=== PATIENT | female | born 1940 | race Caucasian/White ===

== ENCOUNTER 2018-06-16 18:21 | Emergency (ER) | payer MEDICARE, BC ==
[~2018-06-16] VITALS: Ht 152.4 cm; Wt 68.0 kg
--- NOTE | 2018-06-16 19:06 | ED Abdominal Pain ---
General Chief Complaint: Abdominal/GI Problems Stated Complaint: PAIN UNDER RIBCAGE Nursing Triage Note: TO TRIAGE WITH RUQ ABD PAIN. WAS SEEN BY ANTHONY TODAY AND HER LIVER ENZYMES WERE UP. SCHEDULED FOR A GB ULTRASOUND TOMORROW. WAS TOLD TO COME TO ER WITH INCREASE OF TEMP AND PAIN WHICH SHE SAYS SHE HAS BOTH. TEMP AT HOME WAS 99.3 Sepsis Screen: Possible Sepsis Risk Source of Information: Patient Exam Limitations: No Limitations History of Present Illness Date Seen by Provider: Jun 16, 2018 Time Seen by Provider: 19:04 Initial Comments To ER by private vehicle accompanied by her with reports of right upper quadrant abdominal pain. This began this morning. She saw her primary care provider Dr. Kai Cruz this morning who evaluated her and had labs. She states that she was told her liver enzymes were elevated and she is scheduled for a gallbladder ultrasound in the morning. She was told to come to the emergency room if she develops worsening pain or fevers. Her temperature went from 97.4-99.4 this evening and she had an increase in her pain so she comes here. She denies nausea or vomiting. She did have loose stools yesterday. No history of this prior to today. Timing/Duration: 1-2 Days Severity/Quality: Moderate Location: Generalized Abdomen Radiation: No Radiation Activities at Onset: None Associated Symptoms: No Fever/Chills, No Nausea/Vomiting Allergies and Home Medications Allergies Uncoded Allergies: SODIUM PENTHATHOL (Allergy, Unknown, 06/16/18) Home Medications Cefuroxime Axetil 250 Mg Tablet, 250 MG PO BID Prescribed by: LOTTIE LANDRY on 06/16/18 2629 Patient Home Medication List Home Medication List Reviewed: Yes Review of Systems Review of Systems Constitutional: see HPI; No chills, No fever EENTM: No Symptoms Reported Respiratory: No Symptoms Reported Cardiovascular: No Symptoms Reported Gastrointestinal: See HPI, Abdominal Pain, Diarrhea; Denies Nausea, Denies Vomiting (Chadd Stephenson) Genitourinary: No Symptoms Reported Musculoskeletal: no symptoms reported Skin: no symptoms reported Psychiatric/Neurological: No Symptoms Reported Endocrine: No Symptoms Reported Hematologic/Lymphatic: No Symptoms Reported Past Zypspon-Jyzdav-Vjftxb Hx Patient Social History Recent Foreign Travel: No Contact w/Someone Who Travel: No Recent Infectious Disease Expo: No Physical Exam Vital Signs Vital Signs - First Documented 06/16/18 18:34 Temp 98.4 Pulse 94 Resp 16 B/P (MAP) 198/77 (117) Pulse Ox 97 O2 Delivery Room Air Capillary Refill : Less Than 3 Seconds Height/Weight/BMI Height: 5'" Weight: 150lbs. oz. 68.624779ms; BMI Method:Stated General Appearance: WD/WN, no apparent distress HEENT: PERRL/EOMI, normal ENT inspection Neck: non-tender, full range of motion Respiratory: no respiratory distress, no accessory muscle use Cardiovascular: regular rate, rhythm, no murmur Gastrointestinal: normal bowel sounds, soft, tenderness Extremities: normal range of motion, non-tender Neurologic/Psychiatric: alert, normal mood/affect, oriented x 3 Skin: normal color, warm/dry Focused Exam Lactate Level 06/16/18 18:57: Lactic Acid Level 1.27 Lactic Acid Level Laboratory Tests Test 06/16/18 18:57 Lactic Acid Level 1.27 MMOL/L (0.50-2.00) Progress/Results/Core Measures Results/Orders Lab Results Laboratory Tests Test 06/16/18 18:52 06/16/18 18:57 Range/Units Prothrombin Time 12.8 12.2-14.7 SEC INR Comment 1.0 0.8-1.4 Activated Partial Thromboplast Time 29 24-35 SEC White Blood Count 6.8 4.3-11.0 10^3/uL Red Blood Count 4.14 L 4.35-5.85 10^6/uL Hemoglobin 12.6 11.5-16.0 G/DL Hematocrit 39 35-52 % Mean Corpuscular Volume 94 80-99 FL Mean Corpuscular Hemoglobin 30 25-34 PG Mean Corpuscular Hemoglobin Concent 32 32-36 G/DL Red Cell Distribution Width 13.9 10.0-14.5 % Platelet Count 250 130-400 10^3/uL Mean Platelet Volume 10.1 7.4-10.4 FL Neutrophils (%) (Auto) 70 42-75 % Lymphocytes (%) (Auto) 23 12-44 % Monocytes (%) (Auto) 6 0-12 % Eosinophils (%) (Auto) 1 0-10 % Basophils (%) (Auto) 0 0-10 % Neutrophils # (Auto) 4.7 1.8-7.8 X 10^3 Lymphocytes # (Auto) 1.6 1.0-4.0 X 10^3 Monocytes # (Auto) 0.4 0.0-1.0 X 10^3 Eosinophils # (Auto) 0.1 0.0-0.3 10^3/uL Basophils # (Auto) 0.0 0.0-0.1 10^3/uL Urine Color YELLOW Urine Clarity CLEAR Urine pH 6.5 5-9 Urine Specific [place]well 1.020 1.016-1.022 Urine Protein 2+ H NEGATIVE Urine Glucose (UA) NEGATIVE NEGATIVE Urine Ketones NEGATIVE NEGATIVE Urine Nitrite NEGATIVE NEGATIVE Urine Bilirubin NEGATIVE NEGATIVE Urine Urobilinogen NORMAL NORMAL MG/DL Urine Leukocyte Esterase 3+ H NEGATIVE Urine RBC (Auto) 1+ H NEGATIVE Urine RBC RARE /HPF Urine WBC 10-25 H /HPF Urine Squamous Epithelial Cells 10-25 H /HPF Urine Crystals NONE /LPF Urine Bacteria FEW H /HPF Urine Casts NONE /LPF Urine Mucus SMALL H /LPF Urine Culture Indicated YES Sodium Level 141 135-145 MMOL/L Potassium Level 3.4 L 3.6-5.0 MMOL/L Chloride Level 106 98-107 MMOL/L Carbon Dioxide Level 26 21-32 MMOL/L Anion Gap 9 5-14 MMOL/L Blood Urea Nitrogen 15 7-18 MG/DL Creatinine 0.81 0.60-1.30 MG/DL Estimat Glomerular Filtration Rate > 60 BUN/Creatinine Ratio 19 Glucose Level 110 H 70-105 MG/DL Lactic Acid Level 1.27 0.50-2.00 MMOL/L Calcium Level 10.0 8.5-10.1 MG/DL Corrected Calcium 9.6 8.5-10.1 MG/DL Total Bilirubin 1.2 H 0.1-1.0 MG/DL Aspartate Amino Transf (AST/SGOT) 311 H 5-34 U/L Alanine Aminotransferase (ALT/SGPT) 142 H 0-55 U/L Alkaline Phosphatase 123 40-136 U/L Total Protein 8.1 6.4-8.2 GM/DL Albumin 4.5 3.2-4.5 GM/DL Lipase 86 H 8-78 U/L My Orders Orders - LOTTIE LANDRY FUNDR[employer] SPECIALIST Cbc With Automated Diff (06/16/18 18:44) Comprehensive Metabolic Panel (06/16/18 18:44) Lipase (06/16/18 18:44) Ua Culture If Indicated (06/16/18 18:44) Iv Heplock-Insert (Order) (06/16/18 18:44) Ct Abdomen/Pelvis W (06/16/18 18:44) Blood Culture (06/16/18 18:44) Lactic Acid Analyzer (06/16/18 18:44) Ketorolac Injection (Toradol Injection) (06/16/18 19:15) Urine Culture (06/16/18 18:57) Ceftriaxone For Iv Use (Rocephin For I (06/16/18 19:30) Protime With Inr (06/16/18 19:27) Partial Thromboplastin Time (06/16/18 19:27) Iohexol Injection (Omnipaque 350 Mg/Ml 1 (06/16/18 20:00) Contrast Received (Contrast Received) (06/16/18 20:00) Sodium Chloride Flush (Catheter Flush Sy (06/16/18 20:00) Ns (Ivpb) (Sodium Chloride 0.9% Ivpb Bag (06/16/18 20:00) Medications Given in ED Current Medications Medications Dose Ordered Sig/Anaid Route Start Time Stop Time Status Last Admin Dose Admin Ceftriaxone Sodium 1000 mg/ Sterile Water 10 ml @ 200 mls/hr ONCE ONCE IV 06/16/18 19:30 06/16/18 19:32 DC 06/16/18 20:39 200 MLS/HR Iohexol 100 ml ONCE ONCE IV 06/16/18 20:00 06/16/18 20:01 DC 06/16/18 20:09 100 ML Ketorolac Tromethamine 15 mg ONCE ONCE IVP 06/16/18 19:15 06/16/18 19:16 DC 06/16/18 19:09 15 MG Sodium Chloride 10 ml NEEDED PRN IV 06/16/18 20:00 06/16/18 20:09 10 ML Sodium Chloride 100 ml ONCE ONCE IV 06/16/18 20:00 06/16/18 20:01 DC 06/16/18 20:09 80 ML Vital Signs/I&O 06/16/18 18:34 Temp 98.4 Pulse 94 Resp 16 B/P (MAP) 198/77 (117) Pulse Ox 97 O2 Delivery Room Air Blood Pressure Mean: 117 Departure Communication (Admissions) Family Conversation NAME: RACHEL ORTIZ MED REC#: [id number] PT STATUS: REG ER : 1940 PHYSICIAN: LOTTIE LANDRY FUNDR[employer] SPECIALIST ADMIT DATE: 06/16/18/ER Draft Date of Exam:06/16/18 CT ABDOMEN/PELVIS W PROCEDURE: CT abdomen and pelvis with contrast. TECHNIQUE: Multiple contiguous axial images were obtained through the abdomen and pelvis after administration of intravenous contrast. DATE: June 16, 2018. COMPARISON: None. INDICATION: 78-year-old female, right upper quadrant abdominal pain. Fever. FINDINGS: The visualized portions of the lung bases are grossly clear. The heart is not enlarged. There is no identified pericardial effusion. The liver is normal in size and contour. There is a low-attenuation lesion in the right lobe of the liver on axial image 14 which measures 1.2 cm in size with internal attenuation of 22 Hounsfield units. This does not meet strict definite diagnostic criteria for diagnosis of hepatic cyst. There is no additional identified liver lesion. The main, right and left portal veins are patent. The gallbladder is distended. There is no CT apparent gallstone. There is no pericholecystic fluid or adjacent inflammatory stranding to suggest acute cholecystitis. There is no identified intrahepatic or extrahepatic bile duct dilation. There are several pancreatic parenchymal calcifications without prominence of the pancreatic ducts compatible with changes of chronic pancreatitis. There is no evidence of acute pancreatitis. The spleen is normal in size. The adrenal glands are unremarkable. Unremarkable appearance of the renal parenchyma. The urinary collecting systems are not distended. There is no identified renal or ureteral stone. There does appear to be a cystocele. There is diverticulosis without evidence of acute diverticulitis. The intestinal tract is not distended. The appendix is well seen on axial image 51 and adjacent sequential images. There is no evidence of acute appendicitis. There is no free intraperitoneal air. There is no drainable fluid collection. There is no sizable volume free pelvic fluid. There are atherosclerotic calcifications. There is no identified abnormally enlarged lymph node in the abdomen or pelvis which meets CT size criteria for adenopathy. There are multilevel degenerative changes of the spine. There is grade 1 anterolisthesis of L5 on S1 related to facet degenerative changes. Sclerotic lesion of L2 measures 6 mm in size and is technically indeterminate. No additional sclerotic bone lesion is identified. IMPRESSION: CT abdomen and pelvis: 1. Changes of chronic pancreatitis without evidence of acute pancreatitis. 2. Distended gallbladder without CT apparent gallstones or evidence of acute cholecystitis. 3. Diverticulosis without evidence of acute diverticulitis. 4. Cystocele. 5. Additional findings as above. Dictated on workstation # [id number] Dict: 06/16/182021 Trans: 06/16/182029 PJE [id number] Interpreted by: PRAKASH OLIVERA MD Electronically signed by: [id number]-patient's pain is resolved after 15 mg of Toradol. No nausea. No white count or fever here. No hypotension. Discussed the case with Dr. York. He would be happy to see the patient in follow-up after she receives her ultrasound tomorrow. Her either tomorrow or next week, which ever would be easiest. Impression Primary Impression: Right upper quadrant abdominal pain Additional Impression: Elevated liver enzymes Disposition: HOME, SELF-CARE Condition: Stable Departure-Patient Inst. Decision time for Depature: 21:03 Patient Instructions: Acute Abdomen (Belly Pain), Adult (DC) Add. Discharge Instructions: 1. Call scheduling department in the morning at to ask what time the gallbladder ultrasound is. You may also call Dr. York [facility] Take the antibiotics as directed for the bladder infection. Scripts Cefuroxime Axetil (Cefuroxime) 250 Mg Tablet 250 MG PO BID, #10 TAB Prov: LOTTIE LANDRY APRN 06/16/18 Copy Copies To 1: PING YORK DO; KAI CRUZ MD, PETER J APRN Jun 16, 2018 19:06
[2018-06-16 19:08] LABS: BASOPHILS % (AUTO) 0 % (0-10); EOSINOPHILS # (AUTO) 0.1 10^3/uL (0.0-0.3); EOSINOPHILS % (AUTO) 1 % (0-10); HEMATOCRIT 39 % (35-52); HEMOGLOBIN 12.6 G/DL (11.5-16.0); LYMPHOCYTES # (AUTO) 1.6 X 10^3 (1.0-4.0); LYMPHOCYTES % (AUTO) 23 % (12-44); MEAN CORPUSCULAR HEMOGLOBIN 30 PG (25-34); MEAN CORPUSCULAR HGB CONC 32 G/DL (32-36); MEAN CORPUSCULAR VOLUME 94 FL (80-99); MEAN PLATELET VOLUME 10.1 FL (7.4-10.4); MONOCYTES # (AUTO) 0.4 X 10^3 (0.0-1.0); MONOCYTES % (AUTO) 6 % (0-12); NEUTROPHILS # (AUTO) 4.7 X 10^3 (1.8-7.8); NEUTROPHILS % (AUTO) 70 % (42-75); PLATELET COUNT 250 10^3/uL (130-400); RED CELL DISTRIBUTION WIDTH 13.9 % (10.0-14.5); WHITE BLOOD COUNT 6.8 10^3/uL (4.3-11.0)
[2018-06-16 19:09] LABS: BILIRUBIN,URINE NEGATIVE (NEGATIVE); CLARITY,URINE CLEAR; GLUCOSE, URINE (UA) NEGATIVE (NEGATIVE); KETONES,URINE NEGATIVE (NEGATIVE); LEUKOCYTE ESTERASE ,URINE 3+ (NEGATIVE); NITRITE,URINE NEGATIVE (NEGATIVE); PH,URINE 6.5 (5-9); PROTEIN,URINE 2+ (NEGATIVE); UROBILINOGEN,URINE NORMAL (NORMAL)
[2018-06-16] MEDS ORDERED: KETOROLAC 30 MG/ML VIAL IVP ONE (19:15)
[2018-06-16 19:17] LABS: BACTERIA,URINE FEW /HPF; COLOR,URINE YELLOW; RBC,URINE RARE /HPF
[2018-06-16] MEDS ORDERED: cefTRIAXone FOR IV USE 1,000 MG in WATER (STERILE) FOR INJECTION 10 ML IV ONE (19:30)
[2018-06-16 19:51] LABS: PROTHROMBIN TIME PATIENT 12.8 SEC (12.2-14.7)
[2018-06-16 19:53] LABS: ALANINE AMINOTRANSFERASE 142 U/L (0-55); ALBUMIN 4.5 GM/DL (3.2-4.5); ALKALINE PHOSPHATASE 123 U/L (40-136); BILIRUBIN,TOTAL 1.2 MG/DL (0.1-1.0); BUN/CREATININE RATIO 19; CARBON DIOXIDE 26 MMOL/L (21-32); CHLORIDE 106 MMOL/L (98-107); CREATININE SERUM 0.81 MG/DL (0.60-1.30); GFR ESTIMATED > 60; GLUCOSE 110 MG/DL (70-105); LIPASE 86 U/L (8-78); POTASSIUM 3.4 MMOL/L (3.6-5.0); SODIUM 141 MMOL/L (135-145); TOTAL PROTEIN 8.1 GM/DL (6.4-8.2)
[2018-06-16] MEDS ORDERED: NS 100 ML (IVPB) BAG IV ONE (20:00)
[2018-06-16] MEDS ORDERED: RECEIVED CONTRAST (Hold Metformin) IV SCH (20:00)
[2018-06-16] MEDS ORDERED: IOHEXOL 350 MG/ML 100 ML (OMNIPAQUE 350) VIAL IV ONE (20:00)
[2018-06-16] MEDS ORDERED: CATHETER FLUSH 10 ML SYR IV PRN (20:00)
--- NOTE | 2018-06-16 20:31 | Diagnostic Imaging Report ---
PROCEDURE: CT abdomen and pelvis with contrast. TECHNIQUE: Multiple contiguous axial images were obtained through the abdomen and pelvis after administration of intravenous contrast. DATE: June 16, 2018. COMPARISON: None. INDICATION: 78-year-old female, right upper quadrant abdominal pain. Fever. FINDINGS: The visualized portions of the lung bases are grossly clear. The heart is not enlarged. There is no identified pericardial effusion. The liver is normal in size and contour. There is a low-attenuation lesion in the right lobe of the liver on axial image 14 which measures 1.2 cm in size with internal attenuation of 22 Hounsfield units. This does not meet strict definite diagnostic criteria for diagnosis of hepatic cyst. There is no additional identified liver lesion. The main, right and left portal veins are patent. The gallbladder is distended. There is no CT apparent gallstone. There is no pericholecystic fluid or adjacent inflammatory stranding to suggest acute cholecystitis. There is no identified intrahepatic or extrahepatic bile duct dilation. There are several pancreatic parenchymal calcifications without prominence of the pancreatic ducts compatible with changes of chronic pancreatitis. There is no evidence of acute pancreatitis. The spleen is normal in size. The adrenal glands are unremarkable. Unremarkable appearance of the renal parenchyma. The urinary collecting systems are not distended. There is no identified renal or ureteral stone. There does appear to be a cystocele. There is diverticulosis without evidence of acute diverticulitis. The intestinal tract is not distended. The appendix is well seen on axial image 51 and adjacent sequential images. There is no evidence of acute appendicitis. There is no free intraperitoneal air. There is no drainable fluid collection. There is no sizable volume free pelvic fluid. There are atherosclerotic calcifications. There is no identified abnormally enlarged lymph node in the abdomen or pelvis which meets CT size criteria for adenopathy. There are multilevel degenerative changes of the spine. There is grade 1 anterolisthesis of L5 on S1 related to facet degenerative changes. Sclerotic lesion of L2 measures 6 mm in size and is technically indeterminate. No additional sclerotic bone lesion is identified. IMPRESSION: CT abdomen and pelvis: 1. Changes of chronic pancreatitis without evidence of acute pancreatitis. 2. Distended gallbladder without CT apparent gallstones or evidence of acute cholecystitis. 3. Diverticulosis without evidence of acute diverticulitis. 4. Cystocele. 5. Additional findings as above. Dictated by: Dictated on workstation # [id number]
[2018-06-16] MEDS ORDERED: CEFU250T80 PO (21:07)
[2018-06-16 21:30] VITALS: BP 123/64
== END 2018-06-16 21:32 | disposition home or self-care (01) ==
LOC: EDUNIT# 18:21 → ER 18:24
DX: R10.11 Right upper quadrant pain (principal); R94.5 Abnormal results of liver function studies; Z88.8 Allergy status to other drugs, medicaments and biological substances
CPT/HCPCS: 36415; 74177; 80053; 81000; 83605; 83690; 85025; 85610; 85730; 87040; 87077; 87088

== ENCOUNTER → 2018-06-17 | Outpatient (CLI) | payer MEDICARE, BC ==
[~2018-06-17] MED LIST: CEFU250T80 PO
--- NOTE | 2018-06-17 10:17 | Diagnostic Imaging Report ---
PROCEDURE: US Gallbladder. TECHNIQUE: Multiple real-time grayscale images were obtained over the right upper quadrant in various projections. INDICATION: Right upper quadrant pain. The liver is normal in size at 15.9 cm. No discrete liver mass is identified. The gallbladder contains a small stone. No wall thickening or pericholecystic fluid is seen. No biliary duct dilatation is identified. Pancreas is obscured by bowel gas. Right kidney is unremarkable. There is no ascites. IMPRESSION: Cholelithiasis without evidence of acute cholecystitis. Dictated by: Dictated on workstation # [id number]
== END ==
LOC: RAD 09:27
PROVIDERS: ATTEND Family Medicine
DX: K80.20 Calculus of gallbladder without cholecystitis without obstruction (principal)
CPT/HCPCS: 76705

== ENCOUNTER 2018-12-21 09:14 | Emergency (ER) | payer MEDICARE, BC ==
[~2018-12-21] VITALS: Ht 152.4 cm; Wt 66.7 kg
[2018-12-21 10:04] LABS: BILIRUBIN,URINE NEGATIVE (NEGATIVE); CLARITY,URINE CLEAR; COLOR,URINE YELLOW; GLUCOSE, URINE (UA) NEGATIVE (NEGATIVE); KETONES,URINE NEGATIVE (NEGATIVE); LEUKOCYTE ESTERASE ,URINE 3+ (NEGATIVE); NITRITE,URINE NEGATIVE (NEGATIVE); PH,URINE 6 (5-9); PROTEIN,URINE NEGATIVE (NEGATIVE); UROBILINOGEN,URINE NORMAL (NORMAL)
[2018-12-21 10:06] LABS: BASOPHILS % (AUTO) 0 % (0-10); EOSINOPHILS # (AUTO) 0.1 10^3/uL (0.0-0.3); EOSINOPHILS % (AUTO) 2 % (0-10); HEMATOCRIT 34 % (35-52); HEMOGLOBIN 10.8 G/DL (11.5-16.0); LYMPHOCYTES % (AUTO) 21 % (12-44); MEAN CORPUSCULAR HEMOGLOBIN 31 PG (25-34); MEAN CORPUSCULAR HGB CONC 32 G/DL (32-36); MEAN CORPUSCULAR VOLUME 97 FL (80-99); MEAN PLATELET VOLUME 10.2 FL (7.4-10.4); MONOCYTES # (AUTO) 0.3 X 10^3 (0.0-1.0); MONOCYTES % (AUTO) 6 % (0-12); NEUTROPHILS # (AUTO) 3.4 X 10^3 (1.8-7.8); NEUTROPHILS % (AUTO) 71 % (42-75); PLATELET COUNT 231 10^3/uL (130-400); RED CELL DISTRIBUTION WIDTH 14.2 % (10.0-14.5); WHITE BLOOD COUNT 4.9 10^3/uL (4.3-11.0)
[2018-12-21 10:08] LABS: PROTHROMBIN TIME PATIENT 13.4 SEC (12.2-14.7)
--- NOTE | 2018-12-21 10:13 | ED General ---
General Chief Complaint: Dizziness/Syncope Stated Complaint: DIZZINESS Nursing Triage Note: ARRIVED VIA AMB TO ROOM 10 USING CANE. PT HAD A LEFT TOTAL KNEE 5 WEEKS AGO. LAST NIGHT TOOK X2 TRAMADOL BEFORE BED AND WOKE UP THIS AM DIZZY AND DIAPHORETIC. Nursing Sepsis Screen: No Definite Risk Source of Information: Patient Exam Limitations: No Limitations History of Present Illness Date Seen by Provider: Dec 21, 2018 Time Seen by Provider: 09:40 Initial Comments PT ARRIVES VIA POV FROM HOME PT STATES SHE WOKE UP THIS MORNING AND WAS LIGHTHEADED, VERY SHAKEY, SWEATY, AND TEMP WAS 96.2 PT HAD LEFT KNEE REPLACEMENT [address] ROSSI, AND HAS BEEN DOING VERY WELL--STILL GOING TO PT ON [id number]. WAS SUPPOSED TO GO TODAY, BUT CAME HERE INSTEAD PT STATES SHE HAS NOT NEEDED TO TAKE PAIN MEDICATION VERY OFTEN, BUT HER KNEE WAS HURTING LAST PM, SO SHE TOOK 2 TRAMADOL BEFORE SHE WENT TO BED. NO CHEST PAIN NO SHORTNESS OF BREATH NO PALPITATIONS NO NAUSEA/VOMITING OR ABDOMINAL PAIN NO FEVER, COUGH OR RECENT ILLNESS CHECKED BLOOD SUGAR AND WAS 159 NO HISTORY OF SIMILAR PCP: DR. Bakari CRUZ ORTHOPEDIC SURGEON: DR. ROSSI Allergies and Home Medications Allergies Uncoded Allergies: SODIUM PENTHATHOL (Allergy, Unknown, 06/16/18) Home Medications Cefuroxime Axetil 250 Mg Tablet, 250 MG PO BID Prescribed by: LOTTIE LANDRY on 06/16/18 [id number] Patient Home Medication List Home Medication List Reviewed: Yes Review of Systems Review of Systems Constitutional: see HPI, chills, diaphoresis, dizziness; No fever; weakness EENTM: no symptoms reported Respiratory: no symptoms reported; No cough, No short of breath, No wheezing Cardiovascular: no symptoms reported; No chest pain, No edema, No palpitations, No syncope, No vascular heart diseas Gastrointestinal: no symptoms reported; No abdominal pain, No diarrhea, No vomiting Genitourinary: no symptoms reported Musculoskeletal: see HPI Skin: no symptoms reported Psychiatric/Neurological: No Symptoms Reported; Denies Headache, Denies Numbness, Denies Paresthesia, Denies Seizure, Denies Tingling, Denies Weakness Hematologic/Lymphatic: No Symptoms Reported Immunological/Allergic: no symptoms reported Past [id number] Hx Patient Social History Alcohol Use: Denies Use Recreational Drug Use: No Smoking Status: Never a Smoker Recent Foreign Travel: No Contact w/Someone Who Travel: No Recent Infectious Disease Expo: No Recent Hopitalizations: Yes (KNEE DONE AT [facility]) Immunizations Up To Date Tetanus Booster (TDap): Unknown Seasonal Allergies Seasonal Allergies: No Past Medical History Surgeries: Yes (RIGHT BREAST BIOPSY 1963; LEFT KNEE REPLACEMENT 10/2018; T&A AGE 6) Adenoidectomy, Breast, Joint Replacement, Orthopedic, Tonsillectomy Respiratory: No Cardiac: No Neurological: Yes (RESTLESS LEG SYNDROME) 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 oz. 66.015182so; BMI Method:Stated General Appearance: No Apparent Distress, WD/WN, Other (AMBULATES IN WITH CANE) HEENT: PERRL/EOMI, TMs Normal, Normal ENT Inspection, Pharynx Normal, Moist Mucous Membranes Neck: Full Range of Motion, Normal Inspection, Non Tender, Supple; No Carotid Bruit, No JVD Respiratory: Normal Breath Sounds, No Accessory Muscle Use, No Respiratory Distress Cardiovascular: Regular Rate, Rhythm, No Edema, No JVD, No Murmur, Normal Peripheral Pulses Gastrointestinal: Normal Bowel Sounds, No Organomegaly, No Pulsatile Mass, Non Tender Back: Normal Inspection, No CVA Tenderness Extremity: Normal Capillary Refill, No Calf Tenderness, No Pedal Edema, Other (LEFT KNEE WITH WELL HEALED SURGICAL WOUND, NO SIGNS OF INFECTION; MILD, NORMAL APPEARNG POST OP SWELLING TO KNEE. 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 Norm as Tested; No Abnormal Cerebellar Tests Skin: Normal Color, Warm/Dry Focused Exam Lactate Level 12/21/18 10:02: Lactic Acid Level 1.05 Lactic Acid Level Laboratory Tests Test 12/21/18 10:02 Lactic Acid Level 1.05 MMOL/L (0.50-2.00) Progress/Results/Core Measures Suspected Sepsis Recent Fever Within 48 Hours: No Infection Criteria Present: None New/Unexplained Altered Menta: No Sepsis Screen: No Definite Risk SIRS Temperature:96.2 Pulse: 74 Respiratory Rate: 16 Laboratory Tests 12/21/18 09:28: White Blood Count 4.9 Blood Pressure 133 /90 Mean: 104 12/21/18 10:02: Lactic Acid Level 1.05 Laboratory Tests 12/21/18 09:28: Creatinine 0.76, INR Comment 1.0, Platelet Count 231, Total Bilirubin 0.8 Results/Orders Lab Results Laboratory Tests Test 12/21/18 09:28 12/21/18 10:02 Range/Units White Blood Count 4.9 4.3-11.0 10^3/uL Red Blood Count 3.52 L 4.35-5.85 10^6/uL Hemoglobin 10.8 L 11.5-16.0 G/DL Hematocrit 34 L 35-52 % Mean Corpuscular Volume 97 80-99 FL Mean Corpuscular Hemoglobin 31 25-34 PG Mean Corpuscular Hemoglobin Concent 32 32-36 G/DL Red Cell Distribution Width 14.2 10.0-14.5 % Platelet Count 231 130-400 10^3/uL Mean Platelet Volume 10.2 7.4-10.4 FL Neutrophils (%) (Auto) 71 42-75 % Lymphocytes (%) (Auto) 21 12-44 % Monocytes (%) (Auto) 6 0-12 % Eosinophils (%) (Auto) 2 0-10 % Basophils (%) (Auto) 0 0-10 % Neutrophils # (Auto) 3.4 1.8-7.8 X 10^3 Lymphocytes # (Auto) 1.0 1.0-4.0 X 10^3 Monocytes # (Auto) 0.3 0.0-1.0 X 10^3 Eosinophils # (Auto) 0.1 0.0-0.3 10^3/uL Basophils # (Auto) 0.0 0.0-0.1 10^3/uL Prothrombin Time 13.4 12.2-14.7 SEC INR Comment 1.0 0.8-1.4 Activated Partial Thromboplast Time 29 24-35 SEC Urine Color YELLOW Urine Clarity CLEAR Urine pH 6 5-9 Urine Specific [place] 1.020 1.016-1.022 Urine Protein NEGATIVE NEGATIVE Urine Glucose (UA) NEGATIVE NEGATIVE Urine Ketones NEGATIVE NEGATIVE Urine Nitrite NEGATIVE NEGATIVE Urine Bilirubin NEGATIVE NEGATIVE Urine Urobilinogen NORMAL NORMAL MG/DL Urine Leukocyte Esterase 3+ H NEGATIVE Urine RBC (Auto) NEGATIVE NEGATIVE Urine RBC NONE /HPF Urine WBC 2-5 /HPF Urine Squamous Epithelial Cells 0-2 /HPF Urine Crystals NONE /LPF Urine Bacteria NEGATIVE /HPF Urine Casts NONE /LPF Urine Mucus NEGATIVE /LPF Urine Culture Indicated NO Sodium Level 140 135-145 MMOL/L Potassium Level 3.5 L 3.6-5.0 MMOL/L Chloride Level 106 98-107 MMOL/L Carbon Dioxide Level 23 21-32 MMOL/L Anion Gap 11 5-14 MMOL/L Blood Urea Nitrogen 14 7-18 MG/DL Creatinine 0.76 0.60-1.30 MG/DL Estimat Glomerular Filtration Rate > 60 BUN/Creatinine Ratio 18 Glucose Level 116 H 70-105 MG/DL Calcium Level 9.2 8.5-10.1 MG/DL Corrected Calcium 9.1 8.5-10.1 MG/DL Magnesium Level 2.0 1.6-2.4 MG/DL Total Bilirubin 0.8 0.1-1.0 MG/DL Aspartate Amino Transf (AST/SGOT) 19 5-34 U/L Alanine Aminotransferase (ALT/SGPT) 21 0-55 U/L Alkaline Phosphatase 110 40-136 U/L Troponin I < 0.028 <0.028 NG/ML B-Type Natriuretic Peptide 27.8 <100.0 PG/ML Total Protein 7.4 6.4-8.2 GM/DL Albumin 4.1 3.2-4.5 GM/DL TSH Ellis Testing 2.66 0.35-4.94 UIU/ML Lactic Acid Level 1.05 0.50-2.00 MMOL/L My Orders Orders - JASVIR CORDERO DO Ed Iv/Invasive Line Start (12/21/18 09:51) Ekg Tracing (12/21/18:51) Monitor-Rhythm Ecg Trace Only (12/21/18:51) BNP (12/21/18 09:51) Cbc With Automated Diff (12/21/18:51) Comprehensive Metabolic Panel (12/21/18 09:51) Lactic Acid Analyzer (8/21/19 09:51) Magnesium (12/21/18 09:51) Protime With Inr (12/21/18 09:51) Partial Thromboplastin Time (12/21/18 09:51) Thyroid Analyzer (12/21/18 09:51) Ua Culture If Indicated (12/21/18 09:51) Blood Culture (12/21/18 09:51) Troponin I (12/21/18 09:51) Chest 1 View, Ap/Pa Only (12/21/18 09:51) Ct Angio Chest W (12/21/18 10:44) Ct Head Wo (12/21/18 10:44) Iohexol Injection (Omnipaque 350 Mg/Ml 1 (12/21/18 11:00) Received Contrast (Hold Metformin- Contr (12/21/18 11:00) Sodium Chloride Flush (Catheter Flush Sy (12/21/18 11:00) Ns (Ivpb) (Sodium Chloride 0.9% Ivpb Bag (12/21/18 11:00) Medications Given in ED Current Medications Medications Dose Ordered Sig/Anaid Route Start Time Stop Time Status Last Admin Dose Admin Iohexol 100 ml ONCE ONCE IV 12/21/18 11:00 12/21/18 11:01 DC 12/21/18 11:07 75 ML Sodium Chloride 10 ml NEEDED PRN IV 12/21/18 11:00 12/21/18 11:08 10 ML Sodium Chloride 100 ml ONCE ONCE IV 12/21/18 11:00 12/21/18 11:01 DC 12/21/18 11:07 80 ML Vital Signs/I&O 12/21/18 09:14 Temp 96.2 Pulse 74 Resp 16 B/P (MAP) 133/90 (104) Pulse Ox 97 O2 Delivery Room Air Capillary Refill : Less Than 3 Seconds Blood Pressure Mean: 104 Progress Note : Progress Note SYMPTOMS BEGINNING TO RESOLVE SHORTLY AFTER ARRIVAL ECG Initial ECG Impression Date: Dec 21, 2018 Initial ECG Impression Time: 10:06 Initial ECG Rate: 59 Initial ECG Rhythm: Normal Sinus Initial ECG Impression: Normal Diagnostic Imaging Comments CXR--NO ACUTE PROCESS CT HEAD--NO ACUTE PROCESS CT CHEST ANGIOGRAM--NO P.E. OR OTHER ACUTE PROCESS PER RADIOLOGIST REPORTS AT 11:39 Reviewed: Reviewed by Me Departure Impression Primary Impression: Dizziness Disposition: 01 HOME, SELF-CARE Condition: Improved Departure-Patient Inst. Referrals: HILL ROSSI MD (PCP) Primary Care Physician Patient Instructions: Dizziness, Nonvertigo, (DC) Add. Discharge Instructions: CONTINUE YOUR CURRENT MEDICATIONS DRINK PLENTY OF FLUIDS FOLLOW UP WITH YOUR DR IF SYMPTOMS PERSIST, RETURN TO ER IF SYMPTOMS RETURN / WORSEN All discharge instructions reviewed with patient and/or family. Voiced understanding. JASVIR CORDERO DO Dec 21, 2018 10:13
[2018-12-21 10:14] LABS: BACTERIA,URINE NEGATIVE /HPF; SQUAMOUS EPITHELIAL CELL,UR 0-2 /HPF
[2018-12-21 10:19] LABS: ALANINE AMINOTRANSFERASE 21 U/L (0-55); ALBUMIN 4.1 GM/DL (3.2-4.5); ALKALINE PHOSPHATASE 110 U/L (40-136); BILIRUBIN,TOTAL 0.8 MG/DL (0.1-1.0); BUN/CREATININE RATIO 18; CALCIUM 9.2 MG/DL (8.5-10.1); CARBON DIOXIDE 23 MMOL/L (21-32); CHLORIDE 106 MMOL/L (98-107); CREATININE SERUM 0.76 MG/DL (0.60-1.30); GFR ESTIMATED > 60; GLUCOSE 116 MG/DL (70-105); POTASSIUM 3.5 MMOL/L (3.6-5.0); SODIUM 140 MMOL/L (135-145); TOTAL PROTEIN 7.4 GM/DL (6.4-8.2)
--- NOTE | 2018-12-21 10:35 | Diagnostic Imaging Report ---
INDICATION: Dizziness and diaphoresis. Time of exam 10:22 AM No prior studies are available for comparison. The heart size is normal. The pulmonary vascularity is unremarkable. The lungs are clear. No infiltrate, effusion or pneumothorax is detected. Impression: No acute cardiopulmonary process is detected. Dictated by: Dictated on workstation # [id number]
[2018-12-21 10:42] LABS: TSH (THYROID ANALYZER) 2.66 UIU/ML (0.35-4.94)
[2018-12-21] MEDS ORDERED: CATHETER FLUSH 10 ML SYR IV PRN (11:00)
[2018-12-21] MEDS ORDERED: HOLD METFORMIN - RECEIVED CONTRAST 20 ML VIAL IV SCH (11:00)
[2018-12-21] MEDS ORDERED: IOHEXOL 350 MG/ML 100 ML (OMNIPAQUE 350) VIAL IV ONE (11:00)
[2018-12-21] MEDS ORDERED: NS 100 ML (IVPB) BAG IV ONE (11:00)
--- NOTE | 2018-12-21 11:17 | Diagnostic Imaging Report ---
PROCEDURE: CT head without contrast. TECHNIQUE: Multiple contiguous axial images were obtained through the brain without the use of intravenous contrast. Auto Exposure Controls were utilized during the CT exam to meet ALARA standards for radiation dose reduction. INDICATION: Dizziness. Fever. Lightheadedness. COMPARISON: None. FINDINGS: Moderate generalized cerebral and cerebellar parenchymal volume loss is age appropriate. Moderate leukoaraiosis. No CT evidence for territorial infarction. No intracranial hemorrhage, mass effect, hydrocephalus or extra-axial fluid collections. Osseous structures are intact. The visualized paranasal sinuses and mastoids are clear. IMPRESSION: No acute intracranial CT findings. Dictated by: Dictated on workstation # [id number]
--- NOTE | 2018-12-21 11:31 | Diagnostic Imaging Report ---
PROCEDURE: CT angiography of the chest with contrast. TECHNIQUE: Multiple contiguous axial images were obtained through the chest after uneventful bolus administration of intravenous contrast. 3D reconstructed CTA MIP acquisitions were also performed. Auto Exposure Controls were utilized during the CT exam to meet ALARA standards for radiation dose reduction. INDICATION: Dizziness, lightheadedness and fever. COMPARISON: No prior studies are available for comparison. FINDINGS: The pulmonary arterial system is without evidence of thromboembolism. No filling defects are seen within central, lobar or segmental branches. The thoracic aorta is normal caliber. No dissection is seen. No pericardial or pleural fluid is identified. Central airways are patent. Parenchymal evaluation demonstrates a tiny 2-3 mm subpleural nodule in the right upper lobe, image 28. No other parenchymal nodules are seen. There are no infiltrates or masses. Upper abdomen demonstrates stable low density in right lobe of the liver when compared with prior CT from 06/16/2018. Extensive calcifications throughout the pancreas are again noted consistent with prior pancreatitis. IMPRESSION: 1. No evidence of pulmonary embolism or thoracic aortic dissection. Dictated by: Dictated on workstation # [id number]
[2018-12-21 11:56] VITALS: BP 157/78
== END 2018-12-21 11:56 | disposition home or self-care (01) ==
LOC: EDUNIT# 09:14 → ER 09:15
DX: R42 Dizziness and giddiness (principal); Z96.652 Presence of left artificial knee joint; Z88.8 Allergy status to other drugs, medicaments and biological substances; Z90.89 Acquired absence of other organs
CPT/HCPCS: 36415; 70450; 71045; 71275; 80053; 81000; 83605; 83735; 83880; 84443; 84484; 85025; 85610; 85730; 87040; 93005; 93041

== ENCOUNTER 2019-01-12 09:27 | Outpatient (RCR) | payer MEDICARE, BC | END 2019-01-12 10:33 | disposition home or self-care (01) | PROVIDERS: ATTEND Orthopaedic Surgery | DX: M17.12 Unilateral primary osteoarthritis, left knee (principal) ==

== ENCOUNTER 2021-11-18 05:36 | Outpatient (CLI) | payer MEDICARE, BC ==
[~2021-11-18] VITALS: Ht 152.4 cm; Wt 68.2 kg
[2021-11-18] MEDS ORDERED: PRAM0.12 PO (12:39)
[2021-11-18] MEDS ORDERED: MELO15TA39 PO (12:39)
== END 2021-11-18 12:45 | disposition home or self-care (01) ==
LOC: PREOP 05:36
PROVIDERS: ATTEND Specialist
DX: Z01.818 Encounter for other preprocedural examination (principal)

== ENCOUNTER 2021-11-21 08:52 | Day surgery (SDC) | payer MEDICARE, BC ==
[~2021-11-21] VITALS: Ht 152.4 cm; Wt 68.2 kg
[~2021-11-21 08:52] MED LIST changes: +MELO15TA39 PO; +PRAM0.12 PO
[2021-11-21] MEDS: TETRACAINE 0.5% OPHTH SOLN 4 ML BTL (SINGLE DOSE ONLY) OU PRN ×3 (09:08→09:16)
[2021-11-21 09:13] VITALS: BP 175/80
[2021-11-21] MEDS ORDERED: PHENYLEPHRINE 10% OPHTH (NEO-SYN) 5 ML BTL OU PRN (09:15)
[2021-11-21] MEDS ORDERED: TROPICAMIDE 1% OPH SOLN (MYDRIACYL) 15 ML BTL OU PRN (09:15)
--- NOTE | 2021-11-21 09:15 | Ophthalmologist Pre-Op Note ---
Pre-Operative Progress Note H&P Reviewed The H&P was reviewed, patient examined and no changes noted. Date H&P Reviewed: Nov 21, 2021 Time H&P Reviewed: 09:14 Pre-Op Dx Secondary Cataract, Right Eye YUKI VALDEZ MD Nov 21, 2021 09:15
--- NOTE | 2021-11-21 09:45 | Ophthalmology Operative Report ---
YAG Capsulotomy PREOPERATIVE DIAGNOSIS: Secondary Cataract Left Eye POSTOPERATIVE DIAGNOSIS: Secondary Cataract Left Eye PROCEDURE: YAG Capsulotomy, left eye SURGEON: Eber Valdez ANESTHESIA: Topical anesthesia COMPLICATIONS: None ESTIMATED BLOOD LOSS: Minimal DESCRIPTION OF PROCEDURE: After proper informed consent was obtained, the patient's, a 81 female left eye received one drop of Tropicamide and one drop of Tetracaine. The patient was then placed at the YAG laser and using a power of [4.0 ] millijoules and [27 ] bursts were used to fashion a central capsulotomy. The patient tolerated the procedure well without complications. EBER VALDEZ MD Nov 21, 2021 09:45
== END 2021-11-21 09:57 | disposition home or self-care (01) ==
LOC: SDC 08:52
PROVIDERS: ATTEND Specialist
DX: H26.40 Unspecified secondary cataract (principal)